=== PATIENT | female | born 1980 | race Caucasian/White ===

== ENCOUNTER 2017-12-09 10:21 | Emergency (ER) | payer SELFPAY, MEDICAID | END 2017-12-09 13:47 | disposition home or self-care (01) | LOC: FTE 10:21 | DX: O9A.211 Injury, poisoning and certain other consequences of external causes complicating pregnancy, first trimester (principal); S00.03XA Contusion of scalp, initial encounter; S00.83XA Contusion of other part of head, initial encounter; R51 Headache; Y04.2XXA Assault by strike against or bumped into by another person, initial encounter; Z3A.01 Less than 8 weeks gestation of pregnancy | CPT/HCPCS: 70450; 70486; 99285-25 ==

== ENCOUNTER 2018-06-22 16:25 | Outpatient (CLI) | payer MEDICAID ==
[2018-06-22] MEDS ORDERED: ONDANSETRON 4 MG INJ IV (16:41)
[2018-06-22] MEDS: LACTATED RINGER'S 1,000 ML IV ×2 (17:05→20:27)
[2018-06-22 17:17] LABS: ADD MAN DIFF? NO
[2018-06-22 17:20] LABS: BASOPHIL # 0.1 10^3/ul (0.0-0.1); BASOPHILS % 0.6 % (0.0-2.0); EOSINOPHILS # 0.1 10^3/ul (0.0-0.5); EOSINOPHILS % 0.7 % (0.0-7.0); HEMATOCRIT 37.1 % (37.0-47.0); HEMOGLOBIN 12.2 g/dl (12.0-16.0); LYMPHOCYTES # 1.5 10^3/ul (0.8-2.9); LYMPHOCYTES % 17.7 % (15.0-51.0); MEAN CORPUSCULAR HEMOGLOBIN 31.9 pg (29.0-33.0); MEAN CORPUSCULAR HGB CONC 32.9 g/dl (32.0-37.0); MEAN CORPUSCULAR VOLUME 96.9 fl (82.0-101.0); MEAN PLATELET VOLUME 11.7 fl (7.4-10.4); MONOCYTE # 0.6 10^3/ul (0.3-0.9); MONOCYTES % 6.9 % (0.0-11.0); NEUTROPHIL # 6.2 10^3/ul (1.6-7.5); NEUTROPHILS % 72.8 % (39.0-77.0); PLATELET COUNT 183 10^3/UL (140-415); RED BLOOD COUNT 3.83 10^6/ul (4.20-5.40); RED CELL DISTRIBUTION WIDTH 13.2 % (11.5-14.5)
[2018-06-22 17:20] LABS: WHITE BLOOD COUNT 8.5 10^3/ul (4.8-10.8)
[2018-06-22 17:26] LABS: ADD UMIC NO; UR ASCORBIC ACID NEGATIVE (NEGATIVE); UR BILIRUBIN (Dip) NEGATIVE (NEGATIVE); UR BLOOD (Dip) NEGATIVE (NEGATIVE); UR CLARITY CLEAR (CLEAR); UR COLOR COLORLESS (YELLOW); UR GLUCOSE (Dip) NEGATIVE (NEGATIVE); UR KETONES (Dip) NEGATIVE (NEGATIVE); UR LEUKOCYTE ESTERASE (Dip) NEGATIVE Leu/ul (NEGATIVE); UR NITRITE (Dip) NEGATIVE (NEGATIVE); UR SPECIFIC GRAVITY (Dip) 1.002 (1.003-1.030); UR TOTAL PROTEIN (Dip) NEGATIVE (NEGATIVE); UR UROBILINOGEN (Dip) NEGATIVE (NEGATIVE)
[2018-06-22 17:40] LABS: ALANINE AMINOTRANSFERASE 17 IU/L (13-69); ALBUMIN 3.5 g/dl (3.3-4.9); ALBUMIN/GLOBULIN RATIO 1.12; ALKALINE PHOSPHATASE 130 IU/L (42-121); ANION GAP 11 (8-16); ASPARTATE AMINO TRANSFERASE 17 IU/L (15-46); BILIRUBIN,INDIRECT 0.2 mg/dl (0-1.1); BILIRUBIN,TOTAL 0.2 mg/dl (0.2-1.3); BLOOD UREA NITROGEN 10 mg/dl (7-20); CALCIUM 8.5 mg/dl (8.4-10.2); CARBON DIOXIDE 22 mmol/L (21-31); CHLORIDE 111 mmol/L (97-110); CREATININE 0.64 mg/dl (0.44-1.00); GLUCOSE 74 mg/dl (70-220); POTASSIUM 3.9 mmol/L (3.5-5.1); SODIUM 140 mmol/L (135-144); TOTAL PROTEIN 6.6 g/dl (6.1-8.1)
[2018-06-22] MEDS ORDERED: TERBUTALINE 1 ML (20:22)
[2018-06-22] MEDS: TERBUTALINE 1 MG/ML INJ SC (20:44)
== END 2018-06-22 21:51 | disposition home or self-care (01) ==
LOC: OBT 16:25 → L-D 16:25 → OBT 21:51
DX: O26.893 Other specified pregnancy related conditions, third trimester (principal); R10.2 Pelvic and perineal pain; O09.523 Supervision of elderly multigravida, third trimester; Z3A.35 35 weeks gestation of pregnancy
CPT/HCPCS: 36415; 76815; 76817; 80053; 81003; 85025; 96360; 96361; 96372; 96376

== ENCOUNTER 2018-07-13 05:55 | Inpatient (IN) | payer MEDICAID ==
[2018-07-13 06:52] LABS: ADD UMIC NO; UR ASCORBIC ACID NEGATIVE (NEGATIVE); UR BILIRUBIN (Dip) NEGATIVE (NEGATIVE); UR BLOOD (Dip) NEGATIVE (NEGATIVE); UR CLARITY CLEAR (CLEAR); UR COLOR STRAW (YELLOW); UR GLUCOSE (Dip) NEGATIVE (NEGATIVE); UR KETONES (Dip) NEGATIVE (NEGATIVE); UR LEUKOCYTE ESTERASE (Dip) NEGATIVE Leu/ul (NEGATIVE); UR NITRITE (Dip) NEGATIVE (NEGATIVE); UR SPECIFIC GRAVITY (Dip) 1.008 (1.003-1.030); UR TOTAL PROTEIN (Dip) NEGATIVE (NEGATIVE); UR UROBILINOGEN (Dip) NEGATIVE (NEGATIVE)
[2018-07-13 08:40] LABS: ADD MAN DIFF? NO
[2018-07-13 08:41] LABS: WHITE BLOOD COUNT 9.2 10^3/ul (4.8-10.8)
[2018-07-13 08:41] LABS: BASOPHILS % 0.3 % (0.0-2.0); EOSINOPHILS # 0.1 10^3/ul (0.0-0.5); EOSINOPHILS % 0.7 % (0.0-7.0); HEMATOCRIT 37.9 % (37.0-47.0); HEMOGLOBIN 12.4 g/dl (12.0-16.0); LYMPHOCYTES # 1.4 10^3/ul (0.8-2.9); LYMPHOCYTES % 15.5 % (15.0-51.0); MEAN CORPUSCULAR HEMOGLOBIN 31.6 pg (29.0-33.0); MEAN CORPUSCULAR HGB CONC 32.7 g/dl (32.0-37.0); MEAN CORPUSCULAR VOLUME 96.7 fl (82.0-101.0); MEAN PLATELET VOLUME 12.3 fl (7.4-10.4); MONOCYTE # 0.5 10^3/ul (0.3-0.9); MONOCYTES % 5.8 % (0.0-11.0); NEUTROPHIL # 7.1 10^3/ul (1.6-7.5); NEUTROPHILS % 76.7 % (39.0-77.0); PLATELET COUNT 144 10^3/UL (140-415); RED BLOOD COUNT 3.92 10^6/ul (4.20-5.40); RED CELL DISTRIBUTION WIDTH 13.9 % (11.5-14.5)
[2018-07-13] MEDS: LACTATED RINGER'S 1,000 ML IV ×4 (08:46→17:07)
[2018-07-13 08:58] LABS: INR 0.93; PROTIME 12.5 Sec (11.9-14.9)
[2018-07-13 08:59] LABS: PARTIAL THROMBOPLASTIN TIME 26.5 Sec (23.0-35.0)
[2018-07-13] MEDS ORDERED: CLINDAMYCIN 900 MG/D5W (PMX) 50 ML IV (09:00)
[2018-07-13] MEDS ORDERED: OXYTOCIN 30 UNITS/LR 500 ML IV ×3 (09:00→20:00)
[2018-07-13] MEDS ORDERED: morphine 2 MG INJ IV (09:00)
[2018-07-13] MEDS ORDERED: MISOPROSTOL 200 MCG TAB PR ×2 (09:00→20:00)
[2018-07-13] MEDS ORDERED: CARBOPROST 250 MCG INJ IM ×2 (09:00→20:00)
[2018-07-13] MEDS ORDERED: ONDANSETRON 4 MG INJ IV ×3 (09:00→20:00)
[2018-07-13] MEDS ORDERED: METHYLERGONOVINE 0.2 MG INJ IM ×2 (09:00→20:00)
[2018-07-13] MEDS ORDERED: KETOROLAC 30 MG INJ IV (09:00)
[2018-07-13] MEDS ORDERED: DIPHENHYDRAMINE 50 MG INJ IV ×3 (09:00→20:00)
[2018-07-13] MEDS ORDERED: NALOXONE (0.4 MG/ML) INJ IV ×2 (09:00→17:30)
[2018-07-13 09:27] LABS: HEPATITIS B SURFACE ANTIGEN NEGATIVE (NEGATIVE)
[2018-07-13] MEDS: OXYTOCIN 30 UNITS/LR 500 ML IV ×2 (11:22→19:59)
[2018-07-13] MEDS ORDERED: FENTAnyl 2MCG/ML-ROPIV 0.2% 100 ML (16:28)
[2018-07-13] MEDS ORDERED: ACETAMINOPHEN/CODEINE #3 TAB PO (17:30)
[2018-07-13] MEDS ORDERED: FENTAnyl 2MCG/ML-ROPIV 0.2% 100 ML BAG EPI ×2 (17:30)
[2018-07-13] MEDS ORDERED: IBUPROFEN 600 MG TAB PO (17:30)
[2018-07-13] MEDS ORDERED: LIDOCAINE 1% (MPF) 30 ML INJ INJ (17:30)
[2018-07-13] MEDS ORDERED: LIDOCAINE 0.5% (SDV) 50 ML INJ (17:46)
[2018-07-13] MEDS: LIDOCAINE 0.5% (SDV) 50 ML INJ INFIL (18:00)
[2018-07-13] MEDS ORDERED: DEXTROSE 5%-LR 1,000 ML IV (19:54)
[2018-07-13] MEDS ORDERED: ZOLPIDEM 5 MG TAB PO (20:00)
[2018-07-13] MEDS ORDERED: ACETAMINOPHEN 325 MG TAB PO (20:00)
[2018-07-13] MEDS ORDERED: DIBUCAINE 1% 30 GM OINT PR (20:00)
[2018-07-13 20:37] LABS: RAPID PLASMA REAGIN NONREACTIVE (NR)
[2018-07-13] MEDS: LANOLIN 7 GM TUBE TOP (22:48)
[2018-07-13] MEDS: WITCH HAZEL/GLYCERIN PAD PR (22:48)
[2018-07-13] MEDS: BENZOCAINE 20% 56 ML SPRAY TOP (22:48)
[2018-07-14] MEDS: LACTATED RINGER'S 1,000 ML IV* ×2 (00:01→03:54)
[2018-07-14] MEDS: IBUPROFEN 600 MG TAB PO ×5 (00:01→23:29)
[2018-07-14] MEDS: HYDROCODONE/APAP (5/325) TAB PO ×3 (04:13→22:03)
[2018-07-14 07:39] LABS: ADD MAN DIFF? NO
[2018-07-14 07:45] LABS: BASOPHIL # 0.1 10^3/ul (0.0-0.1); BASOPHILS % 0.3 % (0.0-2.0); EOSINOPHILS # 0.1 10^3/ul (0.0-0.5); EOSINOPHILS % 0.4 % (0.0-7.0); HEMATOCRIT 35.7 % (37.0-47.0); HEMOGLOBIN 11.8 g/dl (12.0-16.0); LYMPHOCYTES # 1.6 10^3/ul (0.8-2.9); LYMPHOCYTES % 9.5 % (15.0-51.0); MEAN CORPUSCULAR HEMOGLOBIN 31.7 pg (29.0-33.0); MEAN CORPUSCULAR HGB CONC 33.1 g/dl (32.0-37.0); MEAN PLATELET VOLUME 12.1 fl (7.4-10.4); MONOCYTE # 1.1 10^3/ul (0.3-0.9); MONOCYTES % 6.4 % (0.0-11.0); NEUTROPHIL # 13.7 10^3/ul (1.6-7.5); NEUTROPHILS % 82.7 % (39.0-77.0); PLATELET COUNT 150 10^3/UL (140-415); RED BLOOD COUNT 3.72 10^6/ul (4.20-5.40); RED CELL DISTRIBUTION WIDTH 14.1 % (11.5-14.5)
[2018-07-14 07:45] LABS: WHITE BLOOD COUNT 16.6 10^3/ul (4.8-10.8)
[2018-07-14] MEDS: INFLUENZA VIRUS VACCINE 0.5 ML (DISPENSING) IM* (10:00)
[2018-07-15] MEDS: IBUPROFEN 600 MG TAB PO ×2 (05:35→11:30)
[2018-07-15 07:15] LABS: ADD MAN DIFF? NO
[2018-07-15] MEDS: MEASLES,MUMPS,RUBELLA VACCINE INJ SC* (07:15)
[2018-07-15 07:20] LABS: WHITE BLOOD COUNT 11.3 10^3/ul (4.8-10.8)
[2018-07-15 07:20] LABS: BASOPHIL # 0.1 10^3/ul (0.0-0.1); BASOPHILS % 0.4 % (0.0-2.0); EOSINOPHILS # 0.2 10^3/ul (0.0-0.5); EOSINOPHILS % 1.7 % (0.0-7.0); HEMATOCRIT 32.5 % (37.0-47.0); HEMOGLOBIN 10.5 g/dl (12.0-16.0); LYMPHOCYTES # 2.2 10^3/ul (0.8-2.9); LYMPHOCYTES % 19.3 % (15.0-51.0); MEAN CORPUSCULAR HGB CONC 32.3 g/dl (32.0-37.0); MEAN CORPUSCULAR VOLUME 99.1 fl (82.0-101.0); MEAN PLATELET VOLUME 12.2 fl (7.4-10.4); MONOCYTE # 0.8 10^3/ul (0.3-0.9); MONOCYTES % 7.4 % (0.0-11.0); NEUTROPHILS % 70.5 % (39.0-77.0); PLATELET COUNT 151 10^3/UL (140-415); RED BLOOD COUNT 3.28 10^6/ul (4.20-5.40); RED CELL DISTRIBUTION WIDTH 14.5 % (11.5-14.5)
[2018-07-15] MEDS: DIPHTH/TET/ACEL PERTUSS (ADULT) 0.5 ML VIAL IM* (08:49)
[2018-07-15] MEDS: SENNA/DOCUSATE NA (8.6MG/50MG) TAB PO (08:49)
== END 2018-07-15 13:07 | disposition home or self-care (01) | DRG 807 ==
LOC: OBT 05:55 → L-D 05:57 → OBT 08:15 → L-D 08:15 → PP1 21:58
PROC: 10E0XZZ Delivery of Products of Conception, External Approach (ICD-10-PCS; principal; 2018-07-13)
PROC: 3E0234Z Introduction of Serum, Toxoid and Vaccine into Muscle, Percutaneous Approach (ICD-10-PCS; 2018-07-15)
DX: O76 Abnormality in fetal heart rate and rhythm complicating labor and delivery (principal); Z37.0 Single live birth; Z3A.38 38 weeks gestation of pregnancy; Z23 Encounter for immunization
CPT/HCPCS: 62319; 76818; 81003; 85025; 85610; 85730; 86592; 86850; 86900; 86901; 87340; 90686; 90715

== ENCOUNTER 2018-08-25 19:24 | Emergency (ER) | payer MEDICAID ==
[2018-08-25] MEDS: LORAZEPAM 1 MG TAB PO (20:50)
[2018-08-25] MEDS: KETOROLAC 60 MG INJ IM (20:53)
== END 2018-08-25 21:06 | disposition home or self-care (01) ==
LOC: FTE 19:24
DX: M54.2 Cervicalgia (principal)
CPT/HCPCS: 81025; 96372; 99284-25